=== PATIENT | male | born 1980 | race Caucasian/White ===

== ENCOUNTER 2016-07-22 15:59 | Outpatient (CLI) | payer OTHER ==
--- NOTE | 2016-07-22 17:18 | MRI Report ---
EXAM: MRI LUMBAR SPINE WITHOUT CONTRAST EXAM DATE: 07/22/2016 04:38 PM. CLINICAL HISTORY: CHRONIC LOW BACK PAIN. Pain radiating to both feet. COMPARISON: Lumbar spine plain films 02/06/2015. CT scan of the abdomen and pelvis 12/09/2015. TECHNIQUE: Multiplanar, multisequence T1-weighted and fluid-sensitive sequences of the lumbar spine f rom T12 to S1 without contrast. Other: None. FINDINGS: Spinal Cord: The conus terminates at T12-L1. The spinal canal is adequate. The conus medullaris is un remarkable. Midline (sagittal series 301, image 7) demonstrates 2 small, 1.5 mm, soft tissue nodules posteriorly in the thecal sac at the L4 level. These are not definitely borne out on any other sequence. This is likely felt to represent artifact and volume averaging rather than true soft tissue nodules within th e cauda equina. Alignment: Normal. No scoliosis or spondylolisthesis. Bone Marrow: Five tez-ekr-icjqcce lumbar vertebral bodies are assumed. No gross fractures or bone les ions. No bone marrow edema. Disk Levels/Facets: T12-L1: Unremarkable on sagittal series. L1-L2: Unremarkable on sagittal series. L2-L3: Unremarkable. L3-L4: Unremarkable. L4-L5: Unremarkable. L5-S1: Mild loss of disk space height is seen. T2 hypointense disk signal is seen. Minimal central do rsal disk protrusion is seen. No stenosis. Musculature: Normal. No edema or fatty atrophy. Other: The partially visualized retroperitoneum is unremarkable. IMPRESSION: 1. No canal or foraminal stenosis. 2. L5-S1: Mild degenerative disk change. Minimal dorsal disk protrusion. No stenosis. 3. Sagittal T2 series in the midline demonstrates 2 subtle 1.5 mm nodules in the cauda equina at the L4 level. This is felt to represent artifact rather than mass lesions within the cauda equina. This c ould be further evaluated with postcontrast imaging and stack of axial T1 and T2-weighted images from L3-L4 through L5-S1. Comment: The following findings are so common in adults without low back pain that while we report th eir presence, they must be interpreted with caution and in the context of the clinical situation. (Re teresa Coates et al, Spine 2001) Prevalence of findings in patients without low back pain: Disk degeneration (any evidence): 92% Disk desiccation/T2 signal loss: 83% Disk height loss: 56% Disk bulge: 64% Disk protrusion: 32% Annular tear/high intensity zone: 38% [facility] Referring Provider Line: [phone] SITE ID: [id number]
== END 2016-07-22 16:00 | disposition home or self-care (01) ==
LOC: DI 15:59
PROVIDERS: ATTEND Family Medicine
DX: M51.37 Other intervertebral disc degeneration, lumbosacral region (principal); M51.27 Other intervertebral disc displacement, lumbosacral region
CPT/HCPCS: 72148

== ENCOUNTER 2019-08-01 08:42 | Emergency (ER) | payer OTHER ==
--- NOTE | 2019-08-01 09:01 | ED Physician Documentation ---
PD HPI LOWER EXT INJURY - Stated complaint Stated Complaint: L KNEE/YOON/FOOT INJ - Chief complaint Chief Complaint: Trauma Ext - History obtained from History obtained from: Patient - History of Present Illness PD HPI LOW EXT INJURY LOCATION: Left, Knee, Lower leg, Ankle Type of injury: Fall (He was stepping on a trailer hitch and his foot slipped and he struck the yoon onto the edge of a metal and also had a twisting of the ankle and then full extension and hyperextension of the knee. 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) Timing - duration: Hours (1) Timing - details: Abrupt onset, Still present Improved by: Rest Worsened by: Moving, Other (walking on it - states can only really put full weight on heel, but not full footed nor with any rotational movement of the ankle.) Associated symptoms: No: Weakness, Numbness Similar symptoms before: Has not had sx before Review of Systems Skin: denies: Abrasion (s), Laceration (s) Neurologic: denies: Focal weakness, Numbness PD PAST MEDICAL HISTORY - Past Medical History Past Medical History: No Musculoskeletal: Fibromyalgia - Past Surgical History Past Surgical History: No - Present Medications Home Medications: Ambulatory Orders Medication Instructions Recorded Confirmed No Known Home Medications 08/01/19 08/01/19 - Allergies Allergies/Adverse Reactions: Allergies Allergy/AdvReac Type Severity Reaction Status Date / Time amoxicillin [Amoxicillin] Allergy Intermediate Hives Verified 08/01/19 08:55 - Social History Does the pt smoke?: No Smoking Status: Never smoker Does the pt drink ETOH?: Yes Does the pt have substance abuse?: No - Immunizations Immunizations are current?: Yes - POLST Patient has POLST: No PD ED PE NORMAL - Vitals Vital signs reviewed: Yes - General General: Alert and oriented X 3, No acute distress (but limping gait/transfer onto cart.), Well developed/nourished - Derm Derm: Normal color, Warm and dry - Extremities Extremities: Other (Left knee with some minimal tenderness around the suprapatellar area. There is no joint tenderness per se and no effusion. Collateral and cruciate stress testing is without any laxity or pain. Lower anterior tibial area shows localized horizontal area of swelling and tenderness without abrasion o) - Neuro Neuro: Alert and oriented X 3, No motor deficit, No sensory deficit Results - Vitals Vitals: Vital Signs - 24 hr 08/01/19 08/01/19 08:55 09:09 Temperature 37 C Heart Rate 65 79 Respiratory 16 16 Rate Blood Pressure 130/86 H 132/104 H O2 Saturation 97 97 Oxygen O2 Source Room air - Rads (name of study) left ankle Radiology: Prelim report reviewed (no fractures), See rad report PD MEDICAL DECISION MAKING - ED course Complexity details: reviewed results, considered differential, d/w patient Departure - Departure Disposition: 01 Home, Self Care Clinical Impression: Contusion, lower leg Qualifiers: Encounter type: initial encounter Laterality: left Qualified Code(s): S80.12XA - Contusion of left lower leg, initial encounter Ankle sprain Qualifiers: Encounter type: initial encounter Involved ligament of ankle: unspecified ligament Laterality: left Qualified Code(s): S93.402A - Sprain of unspecified ligament of left ankle, initial encounter Knee strain Qualifiers: Encounter type: initial encounter Laterality: left Qualified Code(s): S86.912A - Strain of unspecified muscle(s) and tendon(s) at lower leg level, left leg, initial encounter Condition: Stable Record reviewed to determine appropriate education?: Yes Instructions: ED Sprain Knee, ED Sprain Ankle Follow-Up: Derrick Wan MD [Provider Admit Priv/Credential] - Kisha Levy PA-C [Primary Care Provider] - Comments: No fractures on x-ray. The bruising of the lower leg should be sore for just a few days and go down as the swelling goes down. The strain of the ankle and knee muscles and ligaments can be several days to a week or so. Use the ankle brace and crutches initially for partial to no weightbearing and progress as tolerated. Recheck if not back to fairly normal activity after a week. Meanwhile anti-inflammatory such as ibuprofen 3 times a day and add Tylenol if needed for pains. Rest ice and elevate the ankle and lower leg often today and tomorrow. Forms: Activity restrictions Discharge Date/Time: 08/01/19 10:09
[2019-08-01 09:10] VITALS: BP 132/104
[2019-08-01] MEDS ORDERED: ACETAMINOPHEN 325 MG TABLET PO STA (09:25)
--- NOTE | 2019-08-01 09:51 | XRAY Report ---
PROCEDURE: Ankle 3 View LT INDICATIONS: struck lower tib area and twisted ankle TECHNIQUE: 3 views of the ankle were acquired. COMPARISON: None FINDINGS: Bones: No fractures or dislocations. Ankle mortise is normally aligned. No suspicious bony lesions . Soft tissues: No tibiotalar joint effusion. Achilles tendon appears normal. IMPRESSION: No visualized acute fracture or dislocation. However, occult injury cannot be excluded. Recommend short interval imaging follow-up in 7-10 days as clinically indicated for additional evalua tion. Reviewed by: Sheba Pan MD on 08/01/2019 9:49 AM PDT Approved by: Sheba Pan MD on 08/01/2019 9:49 AM PDT Station ID: [id number]
== END 2019-08-01 10:09 | disposition home or self-care (01) ==
LOC: ED 08:42
DX: S93.402A Sprain of unspecified ligament of left ankle, initial encounter (principal); S86.912A Strain of unspecified muscle(s) and tendon(s) at lower leg level, left leg, initial encounter; S80.12XA Contusion of left lower leg, initial encounter; W17.89XA Other fall from one level to another, initial encounter; W22.8XXA Striking against or struck by other objects, initial encounter; Y93.89 Activity, other specified; Y99.0 Civilian activity done for income or pay
CPT/HCPCS: 1040M; 73610; 99282; 99283; A9270

== ENCOUNTER 2020-01-06 10:30 | Outpatient (CLI) | payer OTHER, BC | END 2020-01-06 23:59 | disposition home or self-care (01) | LOC: LAB.R 10:30 | PROVIDERS: ATTEND Physician Assistant Medical | DX: R53.83 Other fatigue (principal); R07.9 Chest pain, unspecified; Z20.828 Contact with and (suspected) exposure to other viral communicable diseases ==

== ENCOUNTER 2021-06-19 02:15 | Outpatient (CLI) | payer OTHER, BC | END 2021-06-19 02:16 | disposition critical access hospital (66) | LOC: EMS 02:15 | DX: M25.552 Pain in left hip (principal); M54.50 Low back pain, unspecified; M79.18 Myalgia, other site; W17.2XXA Fall into hole, initial encounter; Y93.01 Activity, walking, marching and hiking; Y92.007 Garden or yard of unspecified non-institutional (private) residence as the place of occurrence of the external cause; Y99.0 Civilian activity done for income or pay | CPT/HCPCS: A0425; A0429 ==

== ENCOUNTER 2021-06-19 02:40 | Emergency (ER) | payer OTHER, BC ==
[2021-06-19] MEDS ORDERED: ACETAMINOPHEN 325 MG TABLET PO STA (02:59)
[2021-06-19] MEDS ORDERED: oxyCODONE 5 MG TABLET PO STA (02:59)
[2021-06-19] MEDS ORDERED: LIDOCAINE PATCH 5% TOP STA (02:59)
[2021-06-19] MEDS ORDERED: KETOROLAC 60 MG/2 ML VIAL IM STA (04:01)
--- NOTE | 2021-06-19 04:39 | ED Physician Documentation ---
PD HPI LOWER EXT INJURY - Stated complaint Stated Complaint: L HIP INJ/PX - Chief complaint Chief Complaint: Ext Problem - History obtained from History obtained from: Patient - Additional information Additional information: Patient is a 40-year-old male with no significant past medical history present ing for evaluation of left hip pain. 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 He stepped his right leg into a mud puddle but did not realize how deep it was and his left leg stayed above on the ground While his right leg was deep in a hole. He strained his left hip area.He did not sustain a head injury.He had difficulty putting weight on his left leg and reports shooting pain down the leg.The pain is sharp and worse with movements. It is better at rest. He denies previous injuries to the site.Denies pain elsewhere. Review of Systems Constitutional: denies: Fever Nose: denies: Congestion Cardiac: denies: Chest pain / pressure, Palpitations Respiratory: denies: Dyspnea, Cough GI: denies: Abdominal Pain, Vomiting : denies: Dysuria Skin: denies: Laceration (s) Musculoskeletal: reports: Joint pain Neurologic: denies: Head injury PD PAST MEDICAL HISTORY - Past Medical History Cardiovascular: None Respiratory: None Neuro: Headaches Endocrine/Autoimmune: None GI: None : None HEENT: None Psych: Depression Musculoskeletal: Fibromyalgia Derm: None - Past Surgical History Past Surgical History: No - Present Medications Home Medications: Ambulatory Orders Medication Instructions Recorded Confirmed Ibuprofen [Motrin] 1 tablet PO Q8H PRN #30 tablet 06/19/21 Lidocaine Patch 5% [Lidoderm Patch] 1 patch TOP DAILY PRN #10 patch 06/19/21 Oxycodone HCl/Acetaminophen 1 each PO Q6H PRN #10 tablet 06/19/21 [Percocet 5-325 mg Tablet] - Allergies Allergies/Adverse Reactions: Allergies Allergy/AdvReac Type Severity Reaction Status Date / Time amoxicillin [Amoxicillin] Allergy Intermediate Hives Verified 06/19/21 05:36 - Social History Does the pt smoke?: No Smoking Status: Never smoker Does the pt drink ETOH?: Yes Does the pt have substance abuse?: No - Immunizations Immunizations are current?: Yes - POLST Patient has POLST: No PD ED PE NORMAL - General General: Alert and oriented X 3, No acute distress, Well developed/nourished - HEENT HEENT: Atraumatic, Moist mucous membranes - Neck Neck: Supple, no meningeal sign, No bony TTP, C-Spine cleared by NEXUS criteria - Cardiac Cardiac: RRR, No murmur, Strong equal pulses - Respiratory Respiratory: No respiratory distress, Clear bilaterally - Abdomen Abdomen: Normal bowel sounds, Soft, Non tender - Derm Derm: Warm and dry - Extremities Extremities: No deformity, No edema, No calf tenderness / cord, Other (Tenderness to left posterior hip on palpation, with Internal rotation at left hip, patient reports it feels better with external rotation, full range of motion at left knee and ankle, strong distal pulses, compartments of extremity are soft,No bony tenderness in the thigh or lower leg). No: No tenderness to palpate, Normal ROM s pain PD ED PE EXPANDED - Extremities JOSE LE visual: 1 - tenderness Results - Vitals Vitals: Vital Signs - 24 hr 06/19/21 06/19/21 02:45 04:49 Temperature 36.5 C Heart Rate 95 66 Respiratory 19 18 Rate Blood Pressure 127/81 H 103/75 O2 Saturation 98 96 Oxygen O2 Source Room air PD MEDICAL DECISION MAKING - ED course ED course: Patient evaluated For left hip pain after fall. No head injury. No spinal tenderness. Neurovascularly intact. X-ray negative for fracture. Patient did have continued pain with attempted ambulation so CT was obtained. CT was additionally negative for fracture but did have a incidental findings that I reviewed with the patient. After medications he was able to ambulate with walker. Discussed continuing supportive care as well as need for close follow- up. Patient is aware of strict return precautions. 0519 - Able to ambulate to bathroom with walker. Departure - Departure Disposition: 01 Home, Self Care Clinical Impression: Strain of left hip Qualifiers: Encounter type: initial encounter Qualified Code(s): S76.012A - Strain of muscle, fascia and tendon of left hip, initial encounter Condition: Stable Instructions: ED Sprain Hip Prescriptions: Lidocaine Patch 5% [Lidoderm Patch] 1 patch TOP DAILY PRN #10 patch PRN Reason: pain Ibuprofen [Motrin] 1 tablet PO Q8H PRN #30 tablet PRN Reason: PAIN &/OR FEVER Oxycodone HCl/Acetaminophen [Percocet 5-325 mg Tablet] 1 each PO Q6H PRN #10 tablet PRN Reason: pain Comments: You were evaluated after an injury to your left hip. You had a CT scan and x- rays done which did not show a fracture or dislocation. On your CT scan there were a few incidental findings which you should follow-up with your primary care doctor about. 1. Os acetabuli 2. Femoral bump May be a cause of femoral acetabular impingement. These findings are likely not related to your injury tonight but could be the source of pain to the joint if you have experienced this in the past.There are treatment options for the use conditions. In regards to your hip pain, it is likely due to a strain of the muscles and ligaments from your fall. Please use anti-inflammatory medication such as ibuprofen and ice to the area. I will also provide a short course of narcotic pain medication for severe pain. Please use this sparingly. Please use a walker or crutches as needed to ambulate.You need close follow-up with your primary care doctor or clinic for Work-related injury to be cleared to return to full duty. For now we will have you on light duty. I have sent prescriptions to the [facility] pharmacy in [place]. I am prescribing a short course of narcotic pain medication for you. These are potentially dangerous and addictive medications that should be used carefully. These medications may constipate you. Take an gbvb-rtx-yoyckto stool softener (docusate) twice daily with plenty of water while taking these medications. If you go 24 hours without a bowel movement, take zypo-ipr-clbvrha miralax, per package instructions. Do not drink or drive while taking these medications. If you received narcotic or sedating medications while in the emergency department, do not drive for 24 hours. Store this medication in a safe, secure place and out of reach of children. It is a violation of federal law to give or sell this medication to another person or to use in a manner other than prescribed. The ED will not refill narcotic prescriptions, including prescriptions lost or stolen. To dispose of unwanted medications: 1. [facility] at [address] in [place] has a medication drop box. They accept prescription medications (in pill form) Wednesday through Wednesday 9:00 a.m. to 5:00 p.m. 2. The [facility] [place] [facility] [employer] accepts prescription medications (in pill form only) for disposal year round. Call for more information. 3. Contact the [facility] for the next [facility] sponsored prescription drug collection event. , [phone], or [phone]; Note that many narcotic pain relievers also contain Tylenol/acetaminophen. Please ensure that your total dose of acetaminophen from all sources does not exceed 3 g (3000 mg) per day. Forms: Activity restrictions
[2021-06-19 04:57] VITALS: BP 103/75
--- NOTE | 2021-06-19 07:36 | XRAY Report ---
PROCEDURE: Hip w/Pelvis 2-3V LT INDICATIONS: fall TECHNIQUE: AP pelvis with lateral view(s) of the left hip(s). COMPARISON: None. FINDINGS: Bones: No fractures or dislocations. Pelvic ring appears intact. No suspicious bony lesions. Soft tissues: The visualized bowel gas pattern is normal. No suspicious soft tissue calcifications. IMPRESSION: No evidence acute bony abnormality of the pelvis and left hip. If clinical suspicion and/or symptoms persist, further assessment with repeat plain films or advanced imaging (e.g., CT, MRI, or bone scan) may be helpful for further assessment. Findings are concordant with preliminary interpretation provided by [facility]. Reviewed by: Teddy Allred MD on 06/19/2021 7:35 AM PDT Approved by: Teddy Allred MD on 06/19/2021 7:35 AM PDT Station ID: [id number]
--- NOTE | 2021-06-19 07:53 | CT Report ---
PROCEDURE: LOWER EXTREMITY WO - LT INDICATIONS: trauma; pain to L hip TECHNIQUE: Noncontrast 3-mm axial sections acquired from the distal tibial shaft to the talar dome, with coronal and sagittal reformats. For radiation dose reduction, the following was used: automated exposure c ontrol, adjustment of mA and/or kV according to patient size. COMPARISON: Pelvis and left hip plain films dated 06/19/2021. FINDINGS: Image quality: Excellent. Bones: The acetabulum and hip and left hemipelvis are intact without fracture. There is an os acetab sasha. The shape of the femoral neck can result in femoral acetabular impingement. Mild hip degenerativ e change. Soft tissues: Unremarkable Impression: 1. No evidence acute fracture or dislocation. 2. Mild degenerative change, findings which can correlate with a femoral acetabular impingement. 3. No evidence acute bony abnormality of the left hip. If clinical suspicion and/or symptoms persist, further assessment with repeat plain films or advanced imaging (e.g., CT, MRI, or bone scan) may be helpful for further assessment. Findings are concordant with preliminary interpretation provided by [facility]. Reviewed by: Teddy Allred MD on 06/19/2021 7:52 AM PDT Approved by: Teddy Allred MD on 06/19/2021 7:52 AM PDT Station ID: [id number]
== END 2021-06-19 05:37 | disposition home or self-care (01) ==
LOC: EDUNIT# → ED 02:40
DX: S76.012A Strain of muscle, fascia and tendon of left hip, initial encounter (principal); X50.1XXA Overexertion from prolonged static or awkward postures, initial encounter; Y93.89 Activity, other specified; Y99.0 Civilian activity done for income or pay
CPT/HCPCS: 73502; 73700; 96372; 99283; 99284; A9270

== ENCOUNTER 2021-10-23 07:09 | Outpatient (CLI) | payer OTHER, BC ==
--- NOTE | 2021-10-23 12:37 | MRI Report ---
PROCEDURE: Hip LT W/O INDICATIONS: LEFT HIP STRAIN TECHNIQUE: Noncontrast coronal T1 spin echo and STIR through the bony pelvis. Coronal and axial T2 fast spin ec ho with fat saturation, sagittal T1 spin echo, and oblique axial T2 fast spin echo with fat saturatio n through the hip. COMPARISON: Left hip radiograph dated 09/19/2021. FINDINGS: Image quality: Excellent. Bones and joints: There is no marrow edema. No intraosseous lesions or fractures. No avascular necro sis of the femoral heads. Mild symmetric appearing bilateral hip joint osteoarthritic changes are see n with superior joint space narrowing and subchondral sclerosis. Slight prominence of left superior f emoral head neck junction is seen which can be seen associated with cam-type femoral acetabular impin gement. The visualized lower lumbar spine appears normally aligned. Tendons: The gluteus medius and minimus tendons appear mildly thickened at their insertions on great er trochanter, without associated muscle atrophy. The iliopsoas tendon appears intact, without adjac ent bursal fluid collections. The origin of the hamstring tendon is intact at the ischial tuberosity . Labrum and cartilage: Subtle signal abnormality and contour irregularity involving superior anterior left hip labrum at 12 to 1:00 position is seen suggestive of superior anterior labral tear. Cartilage surface of the femoral head appears slightly thinned. The alpha angle of the femur is within normal limits at less than 55 degrees. Soft tissues: Visualized muscles demonstrate normal bulk and internal signal. The proximal sciatic neurovascular bundle appears normal adjacent to the hamstring tendons. No free pelvic fluid. Bladde r wall thickness is normal. Genitourinary structures and bowel loops appear normal where visualized. IMPRESSION: 1. Mild symmetric appearing bilateral hip joint osteoarthritis. No marrow edema. No fracture or dislo cation. No suspicious intraosseous lesion. No evidence of avascular necrosis of femoral head. 2. Slight prominence of left femoral head neck junction which can be seen associated with cam-type fe moral acetabular impingement. 3. Mild distal left gluteus medius and minimus tendinosis at their insertions on greater trochanter. No other muscle or tendon signal abnormality is seen. 4. Suggestion of superior anterior left hip labral tear at 12 to 1:00 position. Reviewed by: Collin Rangel MD on 10/23/2021 12:36 PM PDT Approved by: Collin Rangel MD on 10/23/2021 12:36 PM [facility] Station ID: [id number]
== END 2021-10-23 07:10 | disposition home or self-care (01) ==
LOC: DI 07:09
PROVIDERS: ATTEND Family Medicine
DX: S76.012D Strain of muscle, fascia and tendon of left hip, subsequent encounter (principal); Y99.0 Civilian activity done for income or pay

== ENCOUNTER 2023-03-15 20:41 | Emergency (ER) | payer OTHER ==
[2023-03-16 02:55] VITALS: BP 114/72; O2SAT 97
--- NOTE | 2023-03-16 04:15 | ED Physician Documentation ---
PD HPI BACK PAIN - Stated complaint Stated Complaint: LOWER BACK PX - Chief complaint Chief Complaint: Trauma Ch/Bk - History obtained from History obtained from: Patient - Additional information Additional information: HPI from patient. Patient c/o sudden onset left low back and left hip pain earlier tonight while working at [employer]. Patient tripped on a fire hose causing loss of balance; he did not fall to ground but in correcting his stance he had sudden onset left buttock and hip pain that has been constant, steadily progressive, and gradually radiating to left lower back and down LLE. Denies weakness, numbness. Pain is distinctly worse with movement involving LLE as well as weight-bearing. Review of Systems : denies: Incontinent Musculoskeletal: reports: Back pain Neurologic: denies: Focal weakness, Numbness PD PAST MEDICAL HISTORY - Past Medical History Past Medical History: Yes Cardiovascular: None Respiratory: None Neuro: Headaches Endocrine/Autoimmune: None GI: None : None HEENT: None Psych: Depression Musculoskeletal: Fibromyalgia Derm: None - Past Surgical History Past Surgical History: No - Present Medications Home Medications: Ambulatory Orders Medication Instructions Recorded Confirmed Cyclobenzaprine [Flexeril] 10 mg PO TID PRN 6 Days #20 tablet 03/16/23 Oxycodone HCl/Acetaminophen 1 - 2 each PO Q6H PRN #14 tablet 03/16/23 [Percocet 5-325 mg Tablet] - Allergies Allergies/Adverse Reactions: Allergies Allergy/AdvReac Type Severity Reaction Status Date / Time amoxicillin [Amoxicillin] Allergy Intermediate Hives Verified 03/16/23 02:50 - Social History Does the pt smoke?: No Smoking Status: Never smoker Does the pt drink ETOH?: Yes Does the pt have substance abuse?: No - Immunizations Immunizations are current?: Yes - POLST Patient has POLST: No PD ED PE NORMAL - Vitals Vital signs reviewed: Yes - General General: Alert and oriented X 3, No acute distress (NAD at rest but obvious painful discomfort with movement of LLE as well as weight-bearing), Well developed/nourished - Back Back: No spinal TTP - Neuro Neuro: No motor deficit, No sensory deficit Results - Vitals Vitals: Oxygen O2 Source Room air PD Medical Decision Making - ED course Complexity details: considered differential, d/w patient ED course: H+P c/w lower lumbar sprain. No "red flags" (weakness, numbness, loss of bladder/bowel control, midline tenderness) to indicate emergent imaging. He is given 800mg PO ibuprofen and take-home packs of cyclobenzaprine and percocet with rx for cyclobenzaprine and oxycodone. Return precautions reviewed Departure - Departure Disposition: Home, Self Care Clinical Impression: Lumbar sprain Qualifiers: Encounter type: initial encounter Qualified Code(s): S33.5XXA - Sprain of ligaments of lumbar spine, initial encounter Condition: Good Instructions: ED Sprain Strain Lumbar Follow-Up: Kisha Levy PA-C [Primary Care Provider] - Prescriptions: Cyclobenzaprine [Flexeril] 10 mg PO TID PRN 6 Days #20 tablet PRN Reason: Spasms Oxycodone HCl/Acetaminophen [Percocet 5-325 mg Tablet] 1 - 2 each PO Q6H PRN #14 tablet PRN Reason: pain Comments: I have electronically submitted prescriptions for Percocet (narcotic/opiate pain medication) and cyclobenzaprine (muscle relaxant) to the [facility] pharmacy in [place]. I am prescribing a short course of narcotic pain medication for you. These are p otentially dangerous and addictive medications that should be used carefully. These medications may constipate you. Take an jdgg-qfb-[id number] stool softener (docusate) twice daily with plenty of water while taking these medications. If you go 24 hours without a bowel movement, take bjrn-yaw-[id number] miralax, per package instructions. Do not drink or drive while taking these medications. If you received narcotic or sedating medications while in the emergency department, do not drive for 24 hours. Store this medication in a safe, secure place and out of reach of children. It is a violation of federal law to give or sell this medication to another person or to use in a manner other than prescribed. The ED will not refill narcotic prescriptions, including prescriptions lost or stolen. To dispose of unwanted medications: 1. [facility] [address] in [place] has a medication drop box. They accept prescription medications (in pill form) Wednesday through Wednesday 9:00 a.m. to 5:00 p.m. 2. The [facility] accepts prescription medications (in pill form only) for disposal year round. Call for more information. 3. Contact the [facility] for the next [facility] sponsored prescription drug collection event. , [phone], or [phone]; Forms: PCP List, Activity restrictions Discharge Date/Time: 03/16/23 05:10
[2023-03-16] MEDS: IBUPROFEN 800 MG TABLET PO STA (04:50)
[2023-03-16] MEDS: oxyCODONE/ACET 5/325 Prepack 4 PO STA (04:50)
[2023-03-16] MEDS: CYCLOBENZAPRINE 10 MG Prepack 2 PO PRN (04:50)
== END 2023-03-16 05:10 | disposition home or self-care (01) ==
LOC: ED 20:41
DX: S33.5XXA Sprain of ligaments of lumbar spine, initial encounter (principal); W18.41XA Slipping, tripping and stumbling without falling due to stepping on object, initial encounter; Y99.0 Civilian activity done for income or pay
CPT/HCPCS: 1040M; A9270; 99282; 99283

== ENCOUNTER 2023-05-03 07:57 | Outpatient (CLI) | payer BC, OTHER ==
[2023-05-03 11:59] LABS: BASOPHILS # (AUTO) 0.1 10^3/uL (0.0-0.1); BASOPHILS % (AUTO) 0.8 %; EOSINOPHILS # (AUTO) 0.3 10^3/uL (0.0-0.7); HCT - HEMATOCRIT 43.8 % (42.0-52.0); HGB - HEMOGLOBIN 14.6 g/dL (14.0-18.0); LYMPHOCYTES # (AUTO) 2.8 10^3/uL (1.5-3.5); LYMPHOCYTES % (AUTO) 42.8 %; MEAN CORPUSCULAR HEMOGLOBIN 29.7 pg (27.0-31.0); MEAN CORPUSCULAR HGB CONC 33.3 g/dL (32.0-36.0); MEAN CORPUSCULAR VOLUME 89.2 fL (80.0-94.0); MEAN PLATELET VOLUME 9.9 fL (7.4-11.4); MONOCYTES # (AUTO) 0.6 10^3/uL (0.0-1.0); MONOCYTES % (AUTO) 8.7 %; NEUTROPHILS # (AUTO) 2.8 10^3/uL (1.5-6.6); NEUTROPHILS % (AUTO) 43.1 %; PLT - PLATELET COUNT 304 10^3/uL (130-450); RED BLOOD COUNT 4.91 10^6/uL (4.70-6.10); RED CELL DISTRIBUTION WIDTH 12.1 % (12.0-15.0); WHITE BLOOD COUNT 6.5 x10^3/uL (4.8-10.8)
[2023-05-03 12:30] LABS: THYROID STIMULATING HORMONE 1.68 uIU/mL (0.34-5.60)
[2023-05-03 12:33] LABS: ALBUMIN 4.1 g/dL (3.2-5.5); ALBUMIN/GLOBULIN RATIO 1.5 (1.0-2.2); ALKALINE PHOSPHATASE 95 IU/L (42-121); ALT ALANINE AMINOTRANSFERASE 55 IU/L (10-60); AST ASPARTATE AMINOTRANSFERASE 30 IU/L (10-42); BILIRUBIN,TOTAL 0.5 mg/dL (0.2-1.0); BUN - BLOOD UREA NITROGEN 16 mg/dL (6-20); CALCIUM 9.5 mg/dL (8.5-10.3); CARBON DIOXIDE - CO2 27 mmol/L (21-32); CHLORIDE 106 mmol/L (101-111); CHOL/HDL RATIO 4.9 (<5.0); CHOLESTEROL 239 mg/dL; CREATININE 0.8 mg/dL (0.6-1.3); GFR - MDRD 107 (>89); GLUCOSE 96 mg/dL (74-104); HDL CHOLESTEROL 49 mg/dL; LDL CHOLESTEROL,CALCULATED 146 mg/dL; POTASSIUM 4.1 mmol/L (3.5-4.5); SODIUM 138 mmol/L (135-145); TOTAL PROTEIN 6.8 g/dL (6.4-8.9); TRIGLYCERIDES 222 mg/dL (48-352); VLDL CHOLESTEROL 44 mg/dL
== END 2023-05-03 07:58 | disposition home or self-care (01) ==
LOC: LAB.N 07:57
PROVIDERS: ATTEND Physician Assistant Medical
DX: Z00.00 Encounter for general adult medical examination without abnormal findings (principal); E29.1 Testicular hypofunction
CPT/HCPCS: 36415; 80053; 80061; 83721; 84403; 84443; 85025

== ENCOUNTER 2023-07-26 13:53 | Outpatient (CLI) | payer BC, OTHER ==
[2023-07-26 14:13] LABS: BASOPHILS # (AUTO) 0.1 10^3/uL (0.0-0.1); BASOPHILS % (AUTO) 0.7 %; EOSINOPHILS # (AUTO) 0.2 10^3/uL (0.0-0.7); EOSINOPHILS % (AUTO) 3.1 %; HCT - HEMATOCRIT 45.8 % (42.0-52.0); HGB - HEMOGLOBIN 15.8 g/dL (14.0-18.0); LYMPHOCYTES # (AUTO) 2.4 10^3/uL (1.5-3.5); LYMPHOCYTES % (AUTO) 32.5 %; MEAN CORPUSCULAR HEMOGLOBIN 29.8 pg (27.0-31.0); MEAN CORPUSCULAR HGB CONC 34.5 g/dL (32.0-36.0); MEAN CORPUSCULAR VOLUME 86.4 fL (80.0-94.0); MEAN PLATELET VOLUME 9.1 fL (7.4-11.4); MONOCYTES # (AUTO) 0.5 10^3/uL (0.0-1.0); NEUTROPHILS # (AUTO) 4.3 10^3/uL (1.5-6.6); NEUTROPHILS % (AUTO) 57.4 %; PLT - PLATELET COUNT 316 10^3/uL (130-450); RED CELL DISTRIBUTION WIDTH 12.2 % (12.0-15.0); WHITE BLOOD COUNT 7.5 x10^3/uL (4.8-10.8)
[2023-07-26 14:19] LABS: ALBUMIN 4.4 g/dL (3.2-5.5); ALBUMIN/GLOBULIN RATIO 1.6 (1.0-2.2); ALKALINE PHOSPHATASE 90 IU/L (42-121); ALT ALANINE AMINOTRANSFERASE 46 IU/L (10-60); AST ASPARTATE AMINOTRANSFERASE 24 IU/L (10-42); BILIRUBIN,TOTAL 0.7 mg/dL (0.2-1.0); BUN - BLOOD UREA NITROGEN 14 mg/dL (6-20); CALCIUM 9.6 mg/dL (8.5-10.3); CARBON DIOXIDE - CO2 26 mmol/L (21-32); CHLORIDE 106 mmol/L (101-111); CHOL/HDL RATIO 5.4 (<5.0); CHOLESTEROL 259 mg/dL; CREATININE 0.9 mg/dL (0.6-1.3); GFR - MDRD 93 (>89); GLUCOSE 159 mg/dL (74-104); HDL CHOLESTEROL 48 mg/dL; LDL CHOLESTEROL,CALCULATED 165 mg/dL; LDL/HDL RATIO 3.4 (<3.6); POTASSIUM 3.5 mmol/L (3.5-4.5); SODIUM 139 mmol/L (135-145); TOTAL PROTEIN 7.2 g/dL (6.4-8.9); TRIGLYCERIDES 232 mg/dL (48-352); VLDL CHOLESTEROL 46 mg/dL
[2023-07-26 14:35] LABS: THYROID STIMULATING HORMONE 0.98 uIU/mL (0.34-5.60)
--- NOTE | 2023-07-26 15:53 | XRAY Report ---
PROCEDURE: Lumbar Spine 2-3V INDICATIONS: LOW BACK STRAIN TECHNIQUE: 2 views of the lumbar spine were acquired. COMPARISON: MRI lumbar spine 07/22/2016. FINDINGS: Surgical change: None. Bones: 5 amt-cay-ejwntqu vertebrae are present. There is normal bony alignment. No vertebral body co mpression fractures. No suspicious bony lesions. Mild disc height loss at L5-S1. Mild facet arthropa thy of the lower lumbar spine. Soft tissues: Overlying bowel gas pattern is normal. No suspicious soft tissue calcifications. IMPRESSION: Mild degenerative changes of the lower lumbar spine with mild disc height loss at L5-S1. No acute oss eous abnormalities. Reviewed by: Praful Avery MD on 07/26/2023 3:52 PM PDT Approved by: Praful Avery MD on 07/26/2023 3:52 PM PDT Station ID: [id number]
--- NOTE | 2023-07-26 16:24 | XRAY Report ---
PROCEDURE: Hip w/Pelvis 2-3V LT INDICATIONS: LEFT HIP PAIN TECHNIQUE: 2 views of the hip were acquired. COMPARISON: X-ray hip 09/19/2021, MRI hip 10/23/2021 FINDINGS: Bones: No fractures or dislocations. No suspicious bony lesions. Mild appearance of bilateral deg enerative joint space narrowing relatively unchanged. No distinct erosions. Soft tissues: No suspicious soft tissue calcifications or masses. IMPRESSION: Stable appearance of mild bilateral degenerative hip joint space narrowing likely arthritic change. Reviewed by: Sheba Pan MD on 07/26/2023 4:23 PM PDT Approved by: Sheba Pan MD on 07/26/2023 4:23 PM PDT Station ID: [id number]
== END 2023-07-26 13:54 | disposition home or self-care (01) ==
LOC: LAB 13:53
PROVIDERS: ATTEND Nurse Practitioner
DX: R56.9 Unspecified convulsions (principal); S39.012A Strain of muscle, fascia and tendon of lower back, initial encounter; Z13.220 Encounter for screening for lipoid disorders; R53.83 Other fatigue; M16.0 Bilateral primary osteoarthritis of hip; M47.816 Spondylosis without myelopathy or radiculopathy, lumbar region; M51.37 Other intervertebral disc degeneration, lumbosacral region
CPT/HCPCS: 36415; 80053; 80061; 82607; 83721; 84439; 84443; 85025

== ENCOUNTER 2023-07-28 09:12 | Outpatient (CLI) | payer OTHER, BC ==
[2023-07-28] MEDS ORDERED: GADOTERATE MEGLUMINE 10 MMOL/20 ML VIAL ONE (09:25)
--- NOTE | 2023-07-28 10:53 | MRI Report ---
PROCEDURE: Brain W/WO INDICATIONS: SEIZURE CONTRAST: clariascan 20ml TECHNIQUE: Noncontrast axial T1 spin echo, axial T2 fast spin echo, sagittal and axial FLAIR, coronal T2 fast sp in echo, axial gradient echo, axial diffusion and ADC through the brain. After the administration of contrast, axial and coronal T1 spin echo with fat saturation through the brain. COMPARISON: MRI brain 08/27/2015 FINDINGS: Image quality: Excellent. CSF spaces: Basal cisterns are patent. No extra-axial fluid collections. Ventricles are normal in size and shape. Brain: No midline shift. No intracranial bleeds or masses. No abnormal intracranial enhancement. There is cerebral volume loss for age. There is periventricular white matter chronic small vessel is chemic change. The brainstem appears normal. Diffusion-weighted images demonstrate no acute ischemi c insults. No chronic ischemic insults. Normal intravascular flow voids are present. Hippocampi ar e unremarkable. Skull and face: Calvarial marrow is normal in signal. Orbits appear normal. Sinuses: Sinuses and mastoids appear clear. IMPRESSION: 1. No acute intracranial process. Reviewed by: Sheba Pan MD on 07/28/2023 10:51 AM PDT Approved by: Sheba Pan MD on 07/28/2023 10:51 AM PDT Station ID: [id number]
[2023-07-28] MEDS: GADOTERATE MEGLUMINE 10 MMOL/20 ML VIAL IVP ONE (18:08)
== END 2023-07-28 09:13 | disposition home or self-care (01) ==
LOC: DI 09:12
PROVIDERS: ATTEND Nurse Practitioner
DX: R56.9 Unspecified convulsions (principal)
CPT/HCPCS: 70553; A9575

== ENCOUNTER 2023-08-06 07:46 | Outpatient (CLI) | payer OTHER, BC ==
[2023-08-06 13:23] LABS: PROLACTIN 8.71 ng/mL
== END 2023-08-06 07:47 | disposition home or self-care (01) ==
LOC: LAB.N 07:46
PROVIDERS: ATTEND Urology
DX: E29.1 Testicular hypofunction (principal)
CPT/HCPCS: 36415; 82670; 83002; 84146; 84153; 84403

== ENCOUNTER 2023-08-26 14:31 | Outpatient (CLI) | payer OTHER, BC ==
--- NOTE | 2023-08-26 15:37 | Sleep Patient Instructions ---
Sleep Center Visit Summary - Patient Visit Information Reason for Visit: Initial consultation - Patient Instructions Instructions Attached: Sleep Study, Sleep Study Home Monitor Additional Instructions: You will be completing a sleep study, either an in-lab polysomnography (PSG) or home sleep study (HST). You will follow-up in the sleep care office after the sleep study is completed to hear the results and talk about therapy, if needed. You will be called by our office staff to schedule this appointment, but you may contact us with any questions. - Clinic Information Contact: [facility] [address] [place] [address] [email or web address] T: [phone]
--- NOTE | 2023-08-26 15:41 | SLEEP CARE CONSULTATION ---
Information from patient questionnaire entered by Atiya Pablo. I have reviewed and concur with the information entered by Atiya Pablo. This document represents the service I personally performed and the decisions made by me, Pati Pinedo ARNP. History of Present Illness Service Date and Time: 08/26/2023 1431 Reason for Visit: New patient Chief Complaint: reports: Unrefreshed sleep, Excessive daytime sleepiness, Fatigue, Frequent awakenings at night Date of Onset: 10YRS Usual bedtime: 2130 Time it takes to fall asleep: 1-2HRS Snores at night: No Observed to quit breathing while asleep: No Sleeps alone due to snoring: No Number of times waking at night: 1-2 Reasons for waking at night: reports: Bathroom Toss, Turn, or Twitch while sleeping: Yes Recalls having dreams: Yes Usually gets out of bed at: 0700 Feels refreshed in the morning: No Morning headache: No Sleepy or fatigued during the day: Yes Ever fallen asleep while driving: No Takes day naps: No Dreams during day naps: Yes Prior sleep studies: Yes Year and Where: 2015 [facility] Type of Sleep Study: Polysomnography Additional HPI information: I had the pleasure of seeing DOROTA SORTO today regarding the possibility of him having a sleep disorder. He was seen in our office in 2015 and had a sleep study 11/18/2015 showing mild NUZHAT with AHI of 10.2. He is not currently set up on any therapy. His current complaints are excessive daytime sleepiness, fatigue, frequent night awakenings and unrefreshed sleep. He saw his PCP and they were reviewing his history and found he had not come back after his sleep study. He said recently he was awakened from sleep having "a seizure" with a nightmare. He was put through the seizure protocol and the neurologist told him it was not a seizure, possibly just from the nightmare. The patient tells me that he normally goes to bed around 9:30 pm, and it takes him approximately 1-2 hours to fall asleep. He has been told that he snores loudly and irregularly at night. He has not been observed to stop breathing in his sleep. He can recall waking up on the average of 1-2 times during the night. Most of the time he wakes up because of bathroom and he can goe back to sleep easily. He has not awakened for his own snoring, choking, and having to gasp for air. There is a lot of tossing and turning in his sleep. Generally he can recall having dreams. He usually wakes up at [id number] and does not feel refreshed. He usually does have a morning headache but it is not very often and after not sleeping well or neck strain. During the day he complains of feeling sleepy and fatigued. He has never fallen asleep while driving nor has any accident due to sleepiness. He usually does not take naps during the day. There is somniloquy (sleep talking) but no somnambulism (sleep walking). He reports having impaired concentration during the day. 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 Patient is and lives in [place]. Have you smoked in the past 12 months: No Alcohol use: Yes Alcohol amount and frequency: 1-2 EVERY OTHER MONTH Caffeine use: Yes Caffeine amount and frequency: 1- PER DAY OR EVERY OTHER DAY Family History Family history of sleep disordered breathing: Yes Family Hx Sleep Apnea: Father: Snoring, Sleep apnea - Treated Allergies and Home Medications Known drug allergies: Yes ( LISTED) Drug allergies reviewed: Yes Home medication list reviewed: Yes (as listed) Allergy and home medication list: Allergies amoxicillin [Amoxicillin] Allergy (Intermediate, Verified 08/24/23 12:03) Hives Home Medications Medication Instructions Recorded Confirmed Last Taken Type Cyclobenzaprine [Flexeril] 10 mg PO TID PRN 6 Days #20 tablet 03/16/23 08/26/23 Unknown Rx Review of Systems Cardiovascular: denies: high blood pressure Gastrointestinal: denies: heartburn Neurological: reports: other (POSSIBLE SEIZURE). denies: headaches Psychiatric: denies: anxiety, depression Ear/Nose/Throat: denies: tonsillectomy Physical Exam Vital signs obtained and entered by: ATIYA Holden MA Blood Pressure: 135/87 (LEFT ARM) Cuff size: long Heart Rate: 107 O2 Saturation: 97 Height: 5 ft 9 in Weight: 240 lb 3.2 oz Body Mass Index: 35.4 BMI Classification: Obese Neck circumference: 17.5 Nostrils: patent to airflow Mouth and throat: narrow oropharynx Soft palate: normal Hard palate: normal Uvula: normal Uvula visualization: 25% Mallampati Class III Tongue: enlarged in size with teeth morales on lateral edges Tonsils: small Neck: normal w/o lymphadenopathy or thyromegaly Heart: regular rate and rhythm Lungs: clear bilaterally Impression and Plan 1. Suspected Obstructive Sleep Apnea-Hypopnea Syndrome, as previously diagnosed and as still suggested by a history of frequent awakening during the night, unrefreshed sleep, cognitive impairment, and excessive daytime sleepiness. Narrow oropharynx and obesity are common predisposing factors for obstructive sleep apnea-hypopnea syndrome. I recommend proceeding to polysomnography to confirm the diagnosis and to assess severity. If the patient has significant sleep disordered breathing, a manual CPAP titration study will also be performed to find the optimal treatment pressure. I informed the patient of what the sleep studies involve and after some discussion, obtained agreement to proceed. The pathophysiology of obstructive sleep apnea-hypopnea syndrome was discussed with the patient and health risks of cardiovascular and cerebrovascular disease if not treated. Risks of drowsy driving discussed in detail and patient advised to avoid long distance driving and to tree puller at the first sign of drowsiness. Patient agreed to plan. * Schedule polysomnography * Avoid long distance driving or driving when feeling sleepy. * Avoid alcohol, sedative and muscle relaxant around bedtime. * Attempt to lose weight. * Review instructions provided by trained office staff on how to prepare for the sleep study. * Return for follow-up after sleep study completed. Counseling Topics: Weight loss health impact Plan: PSG/HST and followup Visit Type: In Office Time Spent with Patient (minutes): 30 Provider Statement: I spent 100% of the Face to Face Visit with the patient with greater than 50% spent counseling the patient and coordination of care.
[2023-08-26 15:50] VITALS: BP 135/87; O2SAT 97
== END 2023-08-26 14:32 | disposition home or self-care (01) ==
LOC: SC 14:31
PROVIDERS: ATTEND Nurse Practitioner Family
DX: G47.33 Obstructive sleep apnea (adult) (pediatric) (principal); E66.9 Obesity, unspecified; Z68.35 Body mass index [BMI] 35.0-35.9, adult
CPT/HCPCS: 99203; 99212

== ENCOUNTER 2023-10-01 19:17 | Outpatient (CLI) | payer OTHER, BC | END 2023-10-01 19:18 | disposition home or self-care (01) | LOC: SC 19:17 | PROVIDERS: ATTEND Nurse Practitioner Family | DX: G47.33 Obstructive sleep apnea (adult) (pediatric) (principal); G47.61 Periodic limb movement disorder; E66.9 Obesity, unspecified; Z68.35 Body mass index [BMI] 35.0-35.9, adult | CPT/HCPCS: 95810 ==